=== PATIENT | male | born 1970 | race Caucasian/White ===

== ENCOUNTER 2016-09-28 01:38 | Emergency (ER) | payer MEDICAID, OTHER ==
[~2016-09-28] VITALS: Ht 175.3 cm; Wt 86.5 kg
[2016-09-28 01:42] VITALS: Ht 175.3 cm; Wt 86.5 kg
[2016-09-28] MEDS ORDERED: ACET/BUTAL/CAFF TAB PO ONE (03:30)
--- NOTE | 2016-09-28 03:45 | RADRPT ---
PROCEDURE: Noncontrast CT Head. CLINICAL INDICATION: Headache TECHNIQUE: Noncontrast CT of the head was obtained. The administered radiation dose was CTDI vol = 45 mGy, DLP = 720 mGy-cm. COMPARISON: No pertinent prior examinations were submitted for comparison. FINDINGS: The ventricles and sulci are within normal limits. There is no acute intracranial hemorrhage or ext ra-axial fluid collection. There is no mass effect. No midline shift is identified. There is no loss of schaffer-white differentiation to suggest acute infarction. The orbits are within normal limits. Some mild mucosal thickening is noted within the paranasal sinu ses. No destructive osseous lesion is identified. IMPRESSION: No acute findings. RPTAT: HIKT .Raulito Bradley MD, MD Date Time Electronically viewed and signed by .Rualito Bradley MD, on 09/28/2016 03:44 .T/
--- NOTE | 2016-09-28 03:52 | ERD ---
ER Documentation Chief Complaint Date/Time DATE: 09/28/16 TIME: 03:50 Chief Complaint SUDDEN ONSET HEADACHE THAT STARTED 2 HRS AGO. HPI 46-year-old male presents here in emergency department for complaint of a sudden onset of headache started 2 hours prior to arrival. Patient described the pain as throbbing pain, 6/10 scale, not better or worse with anything. Patient denies any blurry vision, denies any trauma. Patient denies any changes in balance or memory. Patient took some Tylenol for pain with mild relief. Patient denies any nausea or vomiting. Patient denies any neck pain. Patient denies any neck rigidity. Patient denies any fever or chills. Patient denies any numbness or tingling. ROS All systems reviewed and are negative except as per history of present illness. Medications Home Meds Reported Medications [none] Unknown Strength No Conflict Check 09/28/16 Allergies Allergies: Coded Allergies: No Known Allergy (Unverified , 09/28/16) PMhx/Soc Medical and Surgical Hx: pt denies Medical Hx History of Surgery: Yes (Bilateral wrist fx repair) Anesthesia Reaction: No Hx Alcohol Use: No Hx Substance Use: No Hx Tobacco Use: Yes Smoking Status: Current every day smoker FmHx Family History: No coronary disease, No diabetes, No other Physical Exam Vitals Vital Signs Date Time Temp Pulse Resp B/P Pulse Ox O2 Delivery O2 Flow Rate FiO2 09/28/16 01:42 97.4 73 16 160/97 98 Physical Exam GENERAL: The patient is well developed and appropriate for usual state of health, in no apparent distress. CHEST: Clear to auscultation bilaterally. There are no rales, wheezes or rhonchi. HEART: Regular rate and rhythm. No murmurs, clicks, rubs or gallops. No S3 or S4. ABDOMEN: Soft, nontender and nondistended. Good bowel sounds. No rebound or guarding. No gross peritonitis. No gross organomegaly or masses. No Davis sign or McBurney point tenderness. BACK: No midline or flank tenderness. EXTREMITIES: Equal pulses bilaterally. There is no peripheral clubbing, cyanosis or edema. No focal swelling or erythema. Full range of motion. Grossly neurovascularly intact. NEURO: Alert and oriented. Cranial nerves 2-12 intact. Motor strength in all 4 extremities with 5/5 strength. Sensation grossly intact. Normal speech and gait. Negative Romberg sign and negative pronator drift SKIN: There is no apparent rash or petechia. The skin is warm and dry. HEMATOLOGIC AND LYMPHATIC: There is no evidence of excessive bruising or lymphedema. No gross cervical, axillary, or inguinal lymphadenopathy. Results 24 hrs Current Medications Medications (Trade) Dose Ordered Sig/Damian Route PRN Reason Start Time Stop Time Status Last Admin Dose Admin Acetaminophen/ Butalbital/ Caffeine (Fioricet) 1 tab ONCE ONCE PO 09/28/16 03:30 09/28/16 03:31 DC 09/28/16 03:23 Patient was given medication for pain here in emergency department, after treatment, patient verbalized feeling much better. Patient's pain is improved. PROCEDURE: Noncontrast CT Head. CLINICAL INDICATION: Headache TECHNIQUE: Noncontrast CT of the head was obtained. The administered radiation dose was CTDI vol = 45 mGy, DLP = 720 mGy-cm. COMPARISON: No pertinent prior examinations were submitted for comparison. FINDINGS: The ventricles and sulci are within normal limits. There is no acute intracranial hemorrhage or extra-axial fluid collection. There is no mass effect. No midline shift is identified. There is no loss of schaffer-white differentiation to suggest acute infarction. The orbits are within normal limits. Some mild mucosal thickening is noted within the paranasal sinuses. No destructive osseous lesion is identified. IMPRESSION: No acute findings. RPTAT: HIKT .Raulito Bradley MD, MD Date Time Electronically viewed and signed by .Raulito Bradley MD, MD on 09/28/2016 03:44 .T/ CC: CUBA GOODMAN [employer] Procedures/MDM Medical Decision Making: Patient's symptoms of sepsis at this time, possible tension headache, possible migraine. There is low suspicion for neurological emergencies at this time since patients neurologic exam is normal. Patient did not have any altered level consciousness, vomiting, changes in balance or memory after incident. CT scan of the brain not indicated at this time. Departure Diagnosis: Primary Impression: Headache Headache type: unspecified Headache chronicity pattern: acute headache Intractability: not intractable Qualified Code: R51 - Acute nonintractable headache, unspecified headache type Condition: Stable Patient Instructions: Self-Care for Headaches CUBA GOODMAN NP Sep 28, 2016 03:52
[2016-09-28] MEDS ORDERED: FIORICET PO (03:53)
== END 2016-09-28 04:25 | disposition home or self-care (01) ==
LOC: FTE 01:38
DX: R51 Headache (principal); F17.210 Nicotine dependence, cigarettes, uncomplicated
CPT/HCPCS: 70450; Z7502; Z7610

== ENCOUNTER 2018-05-09 12:04 | Emergency (ER) | END 2018-05-09 16:02 | disposition home or self-care (01) ==